=== PATIENT | female | born 1970 | race Caucasian/White ===

== ENCOUNTER 2022-07-12 09:49 | Outpatient (RCR) | payer BC, SELFPAY | END 2022-10-25 16:50 | disposition home or self-care (01) | PROVIDERS: PCP Family Medicine; Visit Provider Family Medicine | DX: M18.0 Bilateral primary osteoarthritis of first carpometacarpal joints (principal); Z51.89 Encounter for other specified aftercare | CPT/HCPCS: 97165; L3913 ==